=== PATIENT | male | born 1965 | race Two or more races ===

== ENCOUNTER 2019-05-16 09:08 | Emergency (ER) | payer MEDICAID ==
[~2019-05-16] VITALS: Ht 177.8 cm; Wt 100.0 kg
[2019-05-16 10:22] LABS: CLARITY URINE CLEAR (CLEAR); COLOR URINE YELLOW (YELLOW); KETONES URINE NEGATIVE (NEGATIVE); LEUKOCYTE ESTERASE URINE NEGATIVE (NEGATIVE); NITRITE URINE NEGATIVE (NEGATIVE); OCCULT BLOOD URINE 3+ (NEGATIVE); PH URINE 5.5 (4.5-8.0); PROTEIN URINE TRACE (NEGATIVE); SPECIFIC GRAVITY URINE 1.017 (1.005-1.030)
[2019-05-16 10:39] LABS: BASOPHILS % 0.6 % (0.0-2.0); EOSINOPHILS % 0.5 % (0.0-5.0); HEMATOCRIT. 42.9 % (42.0-52.0); HEMOGLOBIN. 14.4 g/dL (14.0-18.0); LYMPHOCYTES % 20.9 % (20.0-50.0); MEAN CORPUSCULAR VOLUME 89.3 fL (80.0-94.0); MEAN PLATELET VOLUME 8.7 fl (7.4-10.4); MONOCYTES % 7.4 % (2.0-8.0); NEUTROPHILS % 70.6 % (40.0-76.0); PLATELET 246 x1000/uL (130-400); RED CELL DISTRIBUTION WIDTH 13.9 % (11.6-14.6)
[2019-05-16] MEDS: LIDOCAINE/EPINEPHR/TETRACAINE 3ML TP ONE (10:50)
[2019-05-16] MEDS: LIDOCAINE 1%/EPI 1:100,000 10 ML VIAL IJ ONE (12:15)
[2019-05-16 12:40] VITALS: BP 124/72
[2019-05-16] MEDS: BACITRACIN ZINC OINT UDPKT TOP ONE (13:15)
== END 2019-05-16 13:45 | disposition home or self-care (01) ==
LOC: ER 09:26
DX: K61.1 Rectal abscess (principal); Z90.81 Acquired absence of spleen
CPT/HCPCS: 36415; 46040; 81003; 85025; 99284; A4217; J3490; Z7610; 99283

== ENCOUNTER 2019-05-18 10:15 | Emergency (ER) | payer MEDICAID ==
[~2019-05-18] VITALS: Ht 175.3 cm; Wt 100.0 kg
[2019-05-18 13:07] VITALS: BP 131/77
== END 2019-05-18 13:18 | disposition home or self-care (01) ==
LOC: ER 10:15
DX: L02.31 Cutaneous abscess of buttock (principal); Z90.81 Acquired absence of spleen
CPT/HCPCS: 99281

== ENCOUNTER 2019-07-17 17:00 | Emergency (ER) | payer MEDICAID ==
[~2019-07-17] VITALS: Ht 177.8 cm; Wt 92.0 kg
[2019-07-17] MEDS ORDERED: CEPH-568 PO (17:22)
[2019-07-17 18:50] VITALS: BP 130/82
== END 2019-07-17 18:50 | disposition home or self-care (01) ==
LOC: ER 17:00
DX: K61.1 Rectal abscess (principal); Z90.81 Acquired absence of spleen
CPT/HCPCS: 99283

== ENCOUNTER 2019-08-02 12:01 | Emergency (ER) | payer MEDICAID ==
[~2019-08-02] VITALS: Ht 175.3 cm; Wt 92.8 kg
[~2019-08-02 12:01] MED LIST: CEPH-568 PO
[2019-08-02 14:23] VITALS: BP 127/85
== END 2019-08-02 16:59 | disposition home or self-care (01) ==
LOC: ER 12:01
DX: Z48.00 Encounter for change or removal of nonsurgical wound dressing (principal); K61.1 Rectal abscess
CPT/HCPCS: 99281

== ENCOUNTER 2019-08-09 16:36 | Emergency (ER) | payer MEDICAID ==
[~2019-08-09] VITALS: Ht 175.3 cm; Wt 93.0 kg
[2019-08-09] MEDS ORDERED: BACITRACIN ZINC OINT UDPKT TOP ONE (20:00)
[2019-08-09] MEDS ORDERED: TETANUS, DIPHTHERIA, PERTUSSIS VAC/PF 0.5ML (>7YR OLD) IM ONE (20:00)
[2019-08-09] MEDS ORDERED: LIDOCAINE HCL/EPINEPHRINE 1%-EPI 1:100,000 20 ML VIAL INFIL NR (20:00)
[2019-08-09] MEDS ORDERED: LIDOCAINE 1%/EPI 1:100,000 10 ML VIAL IJ ONE (20:00)
[2019-08-09] MEDS ORDERED: SULFAMETHOXAZOLE/TRIMETHOPRIM 800/160MG TABLET PO ONE (20:30)
[2019-08-09] MEDS ORDERED: CEPHALEXIN 250MG CAPSULE PO ONE (20:30)
[2019-08-09 20:36] VITALS: BP 122/71
== END 2019-08-09 20:37 | disposition home or self-care (01) ==
LOC: ER 16:36
DX: K61.0 Anal abscess (principal); Z90.81 Acquired absence of spleen
CPT/HCPCS: 46050; 99284; J3490; 90715

== ENCOUNTER 2019-08-11 16:06 | Emergency (ER) | payer MEDICAID ==
[~2019-08-11] VITALS: Ht 175.3 cm; Wt 95.0 kg
[2019-08-11 16:24] VITALS: BP 97/63
== END 2019-08-11 18:18 | disposition home or self-care (01) ==
LOC: ER 16:06
DX: Z48.00 Encounter for change or removal of nonsurgical wound dressing (principal); Z90.81 Acquired absence of spleen
CPT/HCPCS: 99281

== ENCOUNTER 2019-11-10 10:29 | Emergency (ER) | payer MEDICAID ==
[~2019-11-10] VITALS: Ht 175.3 cm; Wt 95.0 kg
[2019-11-10] MEDS ORDERED: KETOROLAC 30MG/ML VIAL IV STA (10:53)
[2019-11-10] MEDS ORDERED: SODIUM CHLORIDE 0.9% 1,000 ML IV ONE (10:53)
[2019-11-10 11:42] LABS: BASOPHILS % 0.5 % (0.0-2.0); EOSINOPHILS % 0.2 % (0.0-5.0); HEMATOCRIT. 42.9 % (42.0-52.0); HEMOGLOBIN. 14.7 g/dL (14.0-18.0); MEAN CORPUSCULAR HEMOGLOBIN 30.7 pg (28.0-32.0); MEAN CORPUSCULAR VOLUME 89.5 fL (80.0-94.0); MEAN PLATELET VOLUME 8.6 fl (7.4-10.4); MONOCYTES % 9.9 % (2.0-8.0); NEUTROPHILS % 62.4 % (40.0-76.0); PLATELET 255 x1000/uL (130-400)
[2019-11-10 11:46] LABS: CLARITY URINE CLEAR (CLEAR); COLOR URINE YELLOW (YELLOW); KETONES URINE NEGATIVE (NEGATIVE); LEUKOCYTE ESTERASE URINE NEGATIVE (NEGATIVE); NITRITE URINE NEGATIVE (NEGATIVE); OCCULT BLOOD URINE 1+ (NEGATIVE); PH URINE 5.5 (4.5-8.0); PROTEIN URINE NEGATIVE (NEGATIVE); UROBILINOGEN URINE 0.2 E.U./dL (0.2-1.0)
[2019-11-10 11:58] LABS: CHLORIDE 103 mEq/L (98-107)
[2019-11-10 13:57] VITALS: BP 133/92
== END 2019-11-10 15:40 | disposition home or self-care (01) ==
LOC: ER 10:29
DX: N13.2 Hydronephrosis with renal and ureteral calculous obstruction (principal); K40.20 Bilateral inguinal hernia, without obstruction or gangrene, not specified as recurrent; K76.0 Fatty (change of) liver, not elsewhere classified; R03.0 Elevated blood-pressure reading, without diagnosis of hypertension
CPT/HCPCS: 36415; 71045; 74176; 80053; 81003; 83690; 85025; 93005; 99285; J7030

== ENCOUNTER 2019-11-15 12:54 | Emergency (ER) | payer MEDICAID ==
[~2019-11-15] VITALS: Ht 172.7 cm; Wt 85.0 kg
[2019-11-15] MEDS ORDERED: ONDANSETRON HCL 4MG/2ML INJ IV STA (14:37)
[2019-11-15] MEDS ORDERED: SODIUM CHLORIDE 0.9% 1,000 ML IV ONE ×2 (14:37→16:31)
[2019-11-15] MEDS ORDERED: KETOROLAC 30MG/ML VIAL IV STA (14:37)
[2019-11-15] MEDS ORDERED: MORPHINE SULFATE 4 MG/ML CPJ (NOT FOR IM USE) IV STA (14:37)
[2019-11-15 15:13] LABS: EOSINOPHILS % 0.4 % (0.0-5.0); HEMATOCRIT. 41.8 % (42.0-52.0); HEMOGLOBIN. 14.3 g/dL (14.0-18.0); LYMPHOCYTES % 28.7 % (20.0-50.0); MEAN CORPUSCULAR HEMOGLOBIN 30.6 pg (28.0-32.0); MEAN CORPUSCULAR VOLUME 89.1 fL (80.0-94.0); MEAN PLATELET VOLUME 8.4 fl (7.4-10.4); NEUTROPHILS % 61.9 % (40.0-76.0); PLATELET 259 x1000/uL (130-400); RED BLOOD CELL COUNT 4.69 mill/uL (4.7-6.1); RED CELL DISTRIBUTION WIDTH 13.8 % (11.6-14.6)
[2019-11-15 15:17] LABS: CHLORIDE 106 mEq/L (98-107)
[2019-11-15 15:19] LABS: PROTHROMBIN TIME 10.7 sec (9.6-11.0)
[2019-11-15 17:12] LABS: CLARITY URINE CLEAR (CLEAR); COLOR URINE YELLOW (YELLOW); KETONES URINE NEGATIVE (NEGATIVE); LEUKOCYTE ESTERASE URINE NEGATIVE (NEGATIVE); NITRITE URINE NEGATIVE (NEGATIVE); OCCULT BLOOD URINE 1+ (NEGATIVE); PH URINE 5.5 (4.5-8.0); PROTEIN URINE NEGATIVE (NEGATIVE); SPECIFIC GRAVITY URINE 1.007 (1.005-1.030); UROBILINOGEN URINE 0.2 E.U./dL (0.2-1.0)
[2019-11-15 17:33] LABS: *AMPHETAMINES SCREEN URINE NEGATIVE (NEGATIVE); *BARBITURATES SCREEN URINE NEGATIVE (NEGATIVE); *BENZODIAZEPINES SCREEN URINE NEGATIVE (NEGATIVE); *COCAINE SCREEN URINE NEGATIVE (NEGATIVE)
[2019-11-15 17:34] LABS: CANNABINOID URINE SCREEN NEGATIVE (NEGATIVE); METHADONE URINE SCREEN NEGATIVE (NEGATIVE); OPIATES URINE SCREEN PRESUMTIVE POSITIVE (NEGATIVE); PHENCYCLIDINE URINE SCREEN NEGATIVE (NEGATIVE)
[2019-11-15 19:36] VITALS: BP 136/79
== END 2019-11-15 19:38 | disposition home or self-care (01) ==
LOC: ER 12:54
DX: N20.0 Calculus of kidney (principal); R03.0 Elevated blood-pressure reading, without diagnosis of hypertension
CPT/HCPCS: 36415; 74176; 80053; 80305; 81003; 83690; 85025; 85610; 96374; 96375; 99284; J1885; J2270; J2405; J7030

== ENCOUNTER 2020-01-27 13:11 | Emergency (ER) | payer MEDICAID ==
[~2020-01-27] VITALS: Ht 185.4 cm; Wt 752.0 kg
[2020-01-27 13:14] VITALS: BP 130/73
== END 2020-01-27 15:24 | disposition home or self-care (01) ==
LOC: ER 13:11
DX: R06.00 Dyspnea, unspecified (principal); Z87.442 Personal history of urinary calculi
CPT/HCPCS: 71045; 93005; 99283

== ENCOUNTER 2025-05-23 23:15 | Emergency (ER) | payer MEDICAID ==
[~2025-05-23] VITALS: Ht 172.7 cm; Wt 107.0 kg
[2025-05-23 23:22] VITALS: TEMP 36.8; O2SAT 98
[2025-05-24] MEDS: LIDOCAINE 5% PATCH TOP SCH (02:53)
[2025-05-24] MEDS ORDERED: LIDO-53 TP (02:54)
[2025-05-24] MEDS ORDERED: CYCL5TAB3 MT (02:54)
[2025-05-24] MEDS ORDERED: NAPR-1176 MT (02:54)
[2025-05-24] MEDS: KETOROLAC 15MG/ML VIAL IM ONE (02:56)
[2025-05-24 03:34] VITALS: BP 131/88; PULSE 72; RESP 18; O2SAT 95
== END 2025-05-24 03:35 | disposition home or self-care (01) ==
LOC: ER 23:15
DX: S80.12XA Contusion of left lower leg, initial encounter (principal); S20.229A Contusion of unspecified back wall of thorax, initial encounter; Z87.442 Personal history of urinary calculi; X58.XXXA Exposure to other specified factors, initial encounter; Y93.89 Activity, other specified; Y92.89 Other specified places as the place of occurrence of the external cause; Y99.8 Other external cause status
CPT/HCPCS: 99285; 76881; 96372; J1885